=== PATIENT | male | born 1945 | race Caucasian/White ===

== ENCOUNTER 2016-09-23 09:12 | Day surgery (SDC) | payer MEDICARE, OTHER ==
[~2016-09-23 09:12] MED LIST: CHONDR SU A NA/HYALUR INTRAOC KIT (SURGICARE) ONE; EPINEPHRINE INJ/PF 1 MG/1 ML AMPULE ONE; KETOROLAC TROMETHAMINE 0.45% 4 DROP/0.4 ML DROPERETTE OS PRN; LIDOCAINE 1% INJ-PF (10 MG/ML) 30 ML SDV ONE; MIDAZOLAM 2 MG/2 ML INJ ONE
[2016-09-23] MEDS: TROPICAMIDE 1% OPH SOLN 3 ML OS PRN ×3 (09:36→09:57)
[2016-09-23] MEDS: CYCLOPENTOLATE 0.2%/PHENYLEPHRINE 1% OPH SOLN 2 ML OS PRN ×3 (09:36→09:57)
[2016-09-23] MEDS: BESIFLOXACIN HCL 0.6% OPH SUSP 5 ML BOTTLE OS PRN ×4 (09:36→11:16)
[2016-09-23] MEDS: TETRACAINE HCL 0.5% OPH SOLN 2 ML OS PRN ×3 (09:37→10:42)
--- NOTE | 2016-09-23 19:33 | [facility] OPERATIVE REPORT E ---
[facility] Operative Report NAME: ADALBERTO ELDRIDGE AGE: 71Y DATE OF SURGERY: 09/23/2016 ROOM: PREOPERATIVE DIAGNOSIS: Cataract, left eye. POSTOPERATIVE DIAGNOSIS: Cataract, left eye. OPERATION: Cataract extraction with Toric IOL insertion, left eye. SURGEON: RIO APONTE M.D. ANESTHESIA: Topical. PROCEDURE: After obtaining appropriate consent, the patient's left eye was prepped and draped in sterile fashion as well as the surgeon in a sterile manner and cataract surgery was started. First a paracentesis blade was used to make a small side-port incision. Viscoelastic was used to inflate the anterior chamber. Next a 2.4 mm incision was made with the paracentesis blade. A continuous capsulorrhexis incision was made using a cystotome and Utrata forceps. Following this hydrodissection was carried out to make the lens fully loose and mobile and it was rotated 90 degrees. Following this, a kbvfdw-pjr-nzyfphb technique was used to phacoemulsify the lens with a CDE of 9.12. The remaining cortex was removed with irrigation/aspiration. Provisc was instilled into the capsular bag to inflate the bag. A SN6AT3, 22.5 diopter lens rotated to [address] was [address]. The remaining viscoelastic material was removed with irrigation/aspiration. Following this, a 10-0 nylon suture was used to close the incision and it was found to be watertight. Vigamox was instilled in the eye and a protective shield was placed over the eye. The patient returned to the postoperative recovery in stable condition. ADDENDUM: Prior to inserting the lens, the 180-axis was marked. Prior to the patient lying on the operating room table, the 0 and 180 degree axis was marked with a corneal marker. The lens was inserted into its proper alignment at the 180-degree axis. DICTATING PHYSICIAN: RIO APONTE M.D. [id number] PHY#: [id number] ID: [id number] JOB#: [id number] ACCT: [id number] cc:RIO APONTE M.D. >
--- NOTE | 2016-09-23 19:34 | DISCHARGE SUMMARY E ---
Discharge Summary NAME: ADALBERTO ELDRIDGE : 1945 AGE: 71Y ADMITTED: 09/23/2016 DISCHARGED: HISTORY AND HOSPITAL COURSE: This is a 71-year-old male who underwent cataract extraction with Toric IOL insertion of the left eye. Diagnosis: Cataract, left eye. He underwent surgery because he was having difficulty seeing road signs and glare from headlights making it difficult to drive at night. He is to be on a regular diet and sleep with his rigid sheild at night. He is to use besivance, Illevro, durezol at 3 pm and 8pm and I will see him for a one day post op visit. DICTATING PHYSICIAN: RIO APONTE M.D. [id number] PHY#: [id number] ID: [id number] JOB#: [id number] ACCT: [id number] cc:RIO APONTE M.D. > MTDD
== END 2016-09-23 11:57 | disposition home or self-care (01) ==
LOC: SC 09:12
PROVIDERS: ATTEND Internal Medicine
PROC: 08RK3JZ Replacement of Left Lens with Synthetic Substitute, Percutaneous Approach (ICD-10-PCS; principal; 2016-09-23 10:30)
DX: H25.813 Combined forms of age-related cataract, bilateral (principal); H04.123 Dry eye syndrome of bilateral lacrimal glands; L40.1 Generalized pustular psoriasis; H52.4 Presbyopia; I10 Essential (primary) hypertension; E78.00 Pure hypercholesterolemia, unspecified; I51.9 Heart disease, unspecified; E11.9 Type 2 diabetes mellitus without complications; Z79.84 Long term (current) use of oral hypoglycemic drugs; Z79.82 Long term (current) use of aspirin; Z79.899 Other long term (current) drug therapy; Z87.891 Personal history of nicotine dependence; Z95.0 Presence of cardiac pacemaker
CPT/HCPCS: 66984; 82962; V2787; J2250; J3490 ×2; A9270; J0171; 142

== ENCOUNTER 2016-10-14 10:12 | Day surgery (SDC) | payer MEDICARE, OTHER ==
[~2016-10-14 10:12] MED LIST changes: -CHONDR SU A NA/HYALUR INTRAOC KIT (SURGICARE) ONE; -EPINEPHRINE INJ/PF 1 MG/1 ML AMPULE ONE; +KETOROLAC TROMETHAMINE 0.45% 4 DROP/0.4 ML DROPERETTE OD PRN; -KETOROLAC TROMETHAMINE 0.45% 4 DROP/0.4 ML DROPERETTE OS PRN; -LIDOCAINE 1% INJ-PF (10 MG/ML) 30 ML SDV ONE; -MIDAZOLAM 2 MG/2 ML INJ ONE
[2016-10-14] MEDS: TROPICAMIDE 1% OPH SOLN 3 ML OD PRN ×3 (10:28→10:57)
[2016-10-14] MEDS: TETRACAINE HCL 0.5% OPH SOLN 2 ML OD PRN ×4 (10:29→10:58)
[2016-10-14] MEDS: CYCLOPENTOLATE 0.2%/PHENYLEPHRINE 1% OPH SOLN 2 ML OD PRN ×3 (10:30→10:57)
[2016-10-14] MEDS: BESIFLOXACIN HCL 0.6% OPH SUSP 5 ML BOTTLE OD PRN ×4 (10:31→11:28)
[2016-10-14] MEDS ORDERED: ONDANSETRON HCL INJ/PF 4 MG/2 ML SDV ONE (10:49)
[2016-10-14] MEDS ORDERED: MIDAZOLAM 2 MG/2 ML INJ ONE (10:49)
[2016-10-14] MEDS ORDERED: FENTANYL CITRATE INJ/PF 100 MCG/2 ML AMPUL ONE (10:49)
[2016-10-14] MEDS: LIDOCAINE 1% INJ-PF (10 MG/ML) 30 ML SDV ONE ×2 (11:09)
[2016-10-14] MEDS: CHONDR SU A NA/HYALUR INTRAOC KIT (SURGICARE) ONE ×2 (11:09)
[2016-10-14] MEDS: EPINEPHRINE INJ/PF 1 MG/1 ML AMPULE ONE ×2 (11:09)
--- NOTE | 2016-10-14 13:13 | [facility]PERAT[facility] REPORT E ---
[facility] Operative Report NAME: ADALBERTO ELDRIDGE AGE: 71Y DATE OF SURGERY: 10/14/2016 ROOM: PREOPERATIVE DIAGNOSIS: 1. Cataract, right eye. 2. Pupil miosis of the right eye. POSTOPERATIVE DIAGNOSIS: 1. Cataract, right eye. 2. Pupil miosis of the right eye. OPERATION: Complex cataract extraction with use of Malyugin ring due to a very miotic pupil of the right eye. SURGEON: RIO APONTE M.D. ANESTHESIA: Topical. PROCEDURE: After obtaining appropriate consent, the patient's right eye was prepped and draped in sterile fashion as well as the surgeon in a sterile manner and cataract surgery was started. First a paracentesis blade was used to make a small side-port incision. Viscoelastic was used to inflate the anterior chamber. Next a 2.4 mm incision was made with the paracentesis blade. A continuous capsulorrhexis incision was made using a cystotome and Utrata forceps. Following this hydrodissection was carried out to make the lens fully loose and mobile and it was rotated 90 degrees. Following this, a vlhanp-lvw-hogbqri technique was used to phacoemulsify the lens with a CDE of 8.55. The remaining cortex was removed with irrigation/aspiration. Provisc was instilled into the capsular bag to inflate the bag. A SN60WF, 22.0 diopter lens was placed. The remaining viscoelastic material was removed with irrigation/aspiration. Following this, a 10-0 nylon suture was used to close the incision and it was found to be watertight. Vigamox was instilled in the eye and a protective shield was placed over the eye. The patient returned to the postoperative recovery in stable condition. Prior to making the capsulorrhexis, a Malyugin ring was inserted due to a very miotic pupil. This was removed at the end of the case. DICTATING PHYSICIAN: RIO APONTE M.D. [id number] PHY#: [id number] ID: [id number] JOB#: [id number] ACCT: [id number] cc:RIO APONTE M.D. >
--- NOTE | 2016-10-14 13:22 | [facility] DISCHARGE SUMMARY E ---
[facility] Discharge Summary NAME: ADALBERTO ELDRIDGE AGE: 71Y ADMITTED: 10/14/2016 DISCHARGED: 10/14/2016 HOSPITAL COURSE: This is a 71-year-old male who underwent cataract extraction with use of a Malyugin ring due to a very miotic pupil. DIAGNOSES: 1. Cataract, right eye. 2. Miosis of the right eye requiring a Malyugin ring making this a complex cataract extraction. INDICATIONS: The patient underwent surgery because he has trouble seeing road signs and has to get closer to them. DISCHARGE INSTRUCTIONS: He should be on a regular diet. No bending at his waist. No heavy lifting. He should use his Besivance, Ilevro, and Durezol at 3 p.m. and 8 p.m. and sleep with a rigid shield. I will see him for his 1 day postoperative tomorrow. DICTATING PHYSICIAN: RIO APONTE M.D. [id number] PHY#: [id number] ID: [id number] JOB#: [id number] ACCT: [id number] cc:RIO APONTE M.D. >
== END 2016-10-14 12:13 | disposition home or self-care (01) ==
LOC: SC 10:12
PROVIDERS: ATTEND Internal Medicine
PROC: 08RK3JZ Replacement of Left Lens with Synthetic Substitute, Percutaneous Approach (ICD-10-PCS; principal; 2016-10-14 11:00)
DX: H25.811 Combined forms of age-related cataract, right eye (principal); H57.03 Miosis; Z96.1 Presence of intraocular lens; I10 Essential (primary) hypertension; M19.90 Unspecified osteoarthritis, unspecified site; E11.9 Type 2 diabetes mellitus without complications; Z79.82 Long term (current) use of aspirin; Z79.84 Long term (current) use of oral hypoglycemic drugs; Z95.0 Presence of cardiac pacemaker; Z79.899 Other long term (current) drug therapy
CPT/HCPCS: 66982; 82962; V2632; J2250; J3490 ×2; A9270; J0171; J3010; J2405; 142